=== PATIENT | male | born 1950 | race Caucasian/White ===

== ENCOUNTER 2019-03-26 04:54 | Inpatient (IN) ==
--- NOTE | 2019-02-19 12:12 | PAT Medication Instructions ---
Medication Instructions Date of Service February 19, 2019 Home Medications Areds 2 1 tab PO BID [place] [employer] 4 tab PO DAILY Herbal Diuretic 1 dose PO UD PRN Joint Es 900 With Glucosamine Chondroitin 2 tab PO DAILY Super Srinivas 200 mg PO DAILY ascorbic acid (vitamin C) [Vitamin C] 1,200 mg PO DAILY cyanocobalamin (vitamin B-12) [Vitamin B-12] 1,000 mcg PO DAILY diltiazem HCl 240 mg PO DAILY ginkgo biloba 60 mg PO DAILY losartan 50 mg PO DAILY meclizine 25 mg PO UD PRN montelukast 10 mg PO QPM niacin 400 mg PO DAILY omega 4-kgp-cca-fish oil [[place]-3] 1 cap PO BID omeprazole 20 mg PO QAM ranitidine HCl 150 mg PO HS tamsulosin 0.8 mg PO DAILY STOP taking 2 weeks before surgery (or as soon as possible if surgery is within 2 weeks) Areds 2 1 tab PO BID [place] [employer] 4 tab PO DAILY Herbal Diuretic 1 dose PO UD PRN Joint Es 900 With Glucosamine Chondroitin 2 tab PO DAILY Super Srinivas 200 mg PO DAILY ginkgo biloba 60 mg PO DAILY omega 7-ohv-ctp-fish oil [[place]-3] 1 cap PO BID STOP taking 24 hours before surgery niacin 400 mg PO DAILY DO NOT take the morning of surgery ascorbic acid (vitamin C) [Vitamin C] 1,200 mg PO DAILY cyanocobalamin (vitamin B-12) [Vitamin B-12] 1,000 mcg PO DAILY losartan 50 mg PO DAILY Take morning of surgery With a small sip of water, OTHERWISE NOTHING TO EAT OR DRINK AFTER MIDNIGHT: diltiazem HCl 240 mg PO DAILY meclizine 25 mg PO UD PRN (if needed) omeprazole 20 mg PO QAM Take evening before surgery meclizine 25 mg PO UD PRN (if needed) montelukast 10 mg PO QPM ranitidine HCl 150 mg PO HS Other Notes If you have any questions please call us at [phone] or [phone] or [phone] or [phone]
--- NOTE | 2019-02-22 10:48 | Anesthesiology Consultation ---
Date of Service February 22, 2019 Assessment & Plan (1) Encounter for pre-operative examination: Chart Review Chart Review: Acceptable Risk for Surgery and Patient seen in Pre Admission Testing Teaching & Discussion Pre-Anesthesia Teaching/Discussion Notes: Instructed NPO after midnight before surgery,except medications with 15 cc of water. Medication instructions provided according to the PAT guidelines. History Surgery Operation Date: 03/26/19 11:35 Proposed Procedures p Right Total Knee Arthroplasty - Heraclio Foster, Height/Weight Height: 6 ft 2 in Weight: 134.8 kg Allergies Allergy/AdvReac Type Severity Reaction Status Date / Time Sulfa (Sulfonamide Allergy Unknown UNKNOWN, Verified 02/16/19 10:07 Antibiotics) REACTION WAS WHEN A CHILD levofloxacin [From Levaquin] AdvReac Unknown ACHILLES Verified 02/16/19 10:50 TENDON TORE Medications Home Medications Medication Instructions Recorded Confirmed Last Taken Areds 2 1 tab PO BID 02/16/19 02/16/19 Unknown [place] [employer] 4 tab PO DAILY 02/16/19 02/16/19 Unknown Herbal Diuretic 1 dose PO UD PRN 02/16/19 02/16/19 Unknown Joint Es 900 With Glucosamine 2 tab PO DAILY 02/16/19 02/16/19 Unknown Chondroitin Super Srinivas 200 mg PO DAILY 02/16/19 02/16/19 Unknown ascorbic acid (vitamin C) [Vitamin 1,200 mg PO DAILY 02/16/19 02/16/19 Unknown C] cyanocobalamin (vitamin B-12) 1,000 mcg PO DAILY 02/16/19 02/16/19 Unknown [Vitamin B-12] diltiazem HCl 240 mg PO DAILY 02/16/19 02/16/19 02/15/19 ginkgo biloba 60 mg PO DAILY 02/16/19 02/16/19 Unknown losartan 50 mg PO DAILY 02/16/19 02/16/19 02/15/19 meclizine 25 mg PO UD PRN 02/16/19 02/16/19 Unknown montelukast 10 mg PO QPM 02/16/19 02/16/19 02/15/19 niacin 400 mg PO DAILY 02/16/19 02/16/19 Unknown omega 8-gih-pvi-fish oil [[place]-3] 1 cap PO BID 02/16/19 02/16/19 Unknown omeprazole 20 mg PO QAM 02/16/19 02/16/19 02/16/19 ranitidine HCl 150 mg PO HS 02/16/19 02/16/19 02/15/19 tamsulosin 0.8 mg PO DAILY 02/16/19 02/16/19 Unknown Past Medical History Medical History Acid reflux controlled Claustrophobia History of skin cancer History of sleep apnea no device (per patient, never prescribed device); patient now s/p partial uvulectomy History of staph infection 2014 s/p left GIA (at [facility]- treated with levaquin and rifampin) Hypertension Neck problem C2-C7 compression- manages with chiropractor; Left shoulder corticosteroid injection 02/22/19 for radiculopathy. Obesity Osteoarthritis Vertigo Episodes a few times a year Exercise / Class Metabolic Activity III < 4 Walking/Shop/Light housework Past Surgical History Surgical History History of cholecystectomy History of colonoscopy History of ear, nose, and throat (ENT) surgery REMOVED SUBLINGUAL GLAND AND RE-CONSTRUCTED SALIVARY GLAND TUBES History of endoscopy History of evacuation of hematoma S/P L GIA History of lung surgery 8 TUMORS TOTAL (B/L LUNGS), REMOVED 1 (BENIGN) History of oral surgery TOOTH EXTRACTION History of removal of skin mole MULTIPLE History of right knee surgery History of total left hip arthroplasty History of uvulectomy Past Anesthesia History No Family Hx of Anesthesia Complications and Other Patient states "too much gas" used with cholecystectomy and patient was told this was why he had shoulder pain post-op. History of PONV No Hx of Motion Sickness and History of PONV Social History Smoking Status: Former smoker tobacco type: cigarettes Do You Dip or Chew Tobacco: No Smoking End Date: QUIT IN EARLY - SMOKED FOR 6 YRS Hx Alcohol Use: Yes Alcohol type: beer alcohol intake frequency: a few times a week Hx Substance Use: No substance use type: does not use Review of Systems Occasional hay fever symptoms. Reflux controlled. Patient denies chest pain, shortness of breath, joint pain, palpitations. Physical Exam Vital Signs VITALS BP 130/81 P 60 TEMP 98.2 SP02 95%RA RESP 18 PHYSICAL Full neck and c-spine range of motion. Full TMJ range of motion. TMD 3 finger breaths Mallampati Score 1 Dentition: several missing molars, left lower side cap Lungs: clear throughout to auscultation Cardiac: regular rate and rhythm, no murmurs noted Spine: normal Carotid arteries: negative bruit Extremities: no edema Testing Laboratory Results 02/22/19 10:09 02/22/19 10:09 PT 10.6 Seconds (9.0-12.0) 02/22/19 10:09 INR 1.0 (0.9-1.1) 02/22/19 10:09 APTT 28.0 Seconds (21.0-31.0) 02/22/19 10:09 Urine Color Yellow 02/22/19 10:09 Urine Appearance Clear (Clear) 02/22/19 10:09 Urine pH 5.0 (4.5-7.5) 02/22/19 10:09 Ur Specific [place] 1.020 (1.000-1.030) 02/22/19 10:09 Urine Protein Negative (Negative) 02/22/19 10:09 Urine Glucose (UA) Negative (Negative) 02/22/19 10:09 Urine Ketones Negative (Negative) 02/22/19 10:09 Urine Nitrite Negative (Negative) 02/22/19 10:09 Ur Leukocyte Esterase Negative (Negative) 02/22/19 10:09 Blood Type O Positive 02/22/19 10:09 Antibody Screen NEGATIVE 02/22/19 10:09 Electrocardiogram Date: 02/22/19 Findings: + SB @ (55) Chest X-Ray Date: 02/22/19 Findings: + NAD
--- NOTE | 2019-02-22 11:43 | XRay Report ---
XR chest Pre-admission PA/Lat CLINICAL HISTORY: Preoperative chest COMPARISON STUDY: No previous studies for comparison. FINDINGS: The cardiac and mediastinal contours are normal. There is no evidence of focal pulmonary co nsolidation. There is no evidence of failure. No pleural effusions are visualized.[ IMPRESSION: No active disease in the chest. Electronically signed by: Yosef Blandon M.D. 02/22/2019 11:42 AM
[2019-02-22 12:03] LABS: Basophils # (auto) 0.04 K/uL (0-0.2); Basophils % (auto) 0.7 %; Eosinophils # (auto) 0.13 K/uL (0-0.5); Eosinophils % (auto) 2.2 %; Hemoglobin 15.3 g/dL (14.0-18.0); Immature Granulocytes # (auto) 0.01 K/uL (0.00-0.02); Immature Granulocytes % (auto) 0.2 %; Lymphocytes # (auto) 1.31 K/uL (1.2-3.4); Lymphocytes % (auto) 22.7 %; Mean Corpuscular Hgb Conc 34.8 g/dL (32-36); Mean Corpuscular Volume 90.5 fL (80-100); Mean Platelet Volume 10.3 fL (7.4-10.4); Monocytes # (auto) 0.76 K/uL (0.11-0.59); Monocytes % (auto) 13.1 %; Neutrophils # (auto) 3.53 K/uL (1.4-6.5); Neutrophils % (auto) 61.1 %; Platelet Count 219 K/uL (130-400); RDW Coefficient of Variation 13.5 % (11.5-14.5); RDW Standard Deviation 44.8 fL (36.4-46.3); Red Blood Count 4.86 M/uL (4.7-6.1); White Blood Count 5.78 K/uL (4.8-10.8)
[2019-02-22 12:08] LABS: Calcium 9.3 mg/dl (8.5-10.1); Creatinine Clr Calc Pharmacy 76.6 ml/min; Est GFR (African American) 62.1; Est GFR (Non-African American) 53.6
[2019-02-22 12:09] LABS: Appearance Urine Clear (Clear); Bilirubin Urine Negative (Negative); Blood Urine Negative (Negative); Color Urine Yellow; Glucose Urine UA Negative (Negative); Ketones Urine Negative (Negative); Leukocyte Esterase Urine Negative (Negative); Nitrite Urine Negative (Negative); Protein Urine Negative (Negative); Urobilinogen Urine Negative (Negative)
[2019-02-22 12:13] LABS: Prothrombin Time 10.6 Seconds (9.0-12.0)
--- NOTE | 2019-03-25 14:17 | History & Physical Report ---
Date of Service March 25, 2019 Assessment & Plan (1) Osteoarthritis of right knee: We will proceed with a right total knee arthroplasty. Postoperatively he will be started on aspirin for DVT prophylaxis and kept overnight for postop medical management. He plans to use home nursing agency upon discharge. Present on Admission?: Yes History of Present Illness Chief Complaint: Primary osteoarthritis of the right knee Primary Care Provider: NO PCP Jorge is a pleasant 68-year-old male who is been doing with chronic increasing right knee pain. X-rays and clinical examination have been diagnostic for primary osteoarthritis of the right knee. After failing conservative treatment, he has elected proceed with a right total knee arthroplasty. He does have a history of an infected left total hip arthroplasty done in outside institution about 4 years ago. He had an infected hematoma and underwent a washout. It was a staph infection and not MRSA. He was on antibiotics for 3 months and it cleared. Allergies Allergy/AdvReac Type Severity Reaction Status Date / Time Sulfa (Sulfonamide Allergy Unknown UNKNOWN, Verified 02/16/19 10:07 Antibiotics) REACTION WAS WHEN A CHILD levofloxacin [From Levaquin] AdvReac Unknown ACHILLES Verified 02/16/19 10:50 TENDON TORE Home Medications Home Medications Medication Instructions Recorded Confirmed Type Areds 2 1 tab PO BID 02/16/19 02/16/19 History [place] [employer] 4 tab PO DAILY 02/16/19 02/16/19 History Herbal Diuretic 1 dose PO UD PRN 02/16/19 02/16/19 History Joint Es 900 With Glucosamine 2 tab PO DAILY 02/16/19 02/16/19 History Chondroitin Super Srinivas 200 mg PO DAILY 02/16/19 02/16/19 History ascorbic acid (vitamin C) [Vitamin 1,200 mg PO DAILY 02/16/19 02/16/19 History C] cyanocobalamin (vitamin B-12) 1,000 mcg PO DAILY 02/16/19 02/16/19 History [Vitamin B-12] diltiazem HCl 240 mg PO DAILY 02/16/19 02/16/19 History ginkgo biloba 60 mg PO DAILY 02/16/19 02/16/19 History losartan 50 mg PO DAILY 02/16/19 02/16/19 History meclizine 25 mg PO UD PRN 02/16/19 02/16/19 History montelukast 10 mg PO QPM 02/16/19 02/16/19 History niacin 400 mg PO DAILY 02/16/19 02/16/19 History omega 5-sxb-fyn-fish oil [[place]-3] 1 cap PO BID 02/16/19 02/16/19 History omeprazole 20 mg PO QAM 02/16/19 02/16/19 History ranitidine HCl 150 mg PO HS 02/16/19 02/16/19 History tamsulosin 0.8 mg PO DAILY 02/16/19 02/16/19 History Past Med/Surg History Medical History Acid reflux controlled Claustrophobia History of skin cancer History of sleep apnea no device (per patient, never prescribed device); patient now s/p partial uvulectomy History of staph infection 2014 s/p left GIA (at [facility]- treated with levaquin and rifampin) Hypertension Neck problem C2-C7 compression- manages with chiropractor; Left shoulder corticosteroid injection 02/22/19 for radiculopathy. Obesity Osteoarthritis Vertigo Episodes a few times a year Surgical History History of cholecystectomy History of colonoscopy History of ear, nose, and throat (ENT) surgery REMOVED SUBLINGUAL GLAND AND RE-CONSTRUCTED SALIVARY GLAND TUBES History of endoscopy History of evacuation of hematoma S/P L GIA History of lung surgery 8 TUMORS TOTAL (B/L LUNGS), REMOVED 1 (BENIGN) History of oral surgery TOOTH EXTRACTION History of removal of skin mole MULTIPLE History of right knee surgery History of total left hip arthroplasty History of uvulectomy Social History Preferred Language: Yemeni Communication Ability: Effective Continuing Education Dean Required: No Beliefs That Will Affect Care: None Current Living Situation: Spouse Other Information That Helps Us Care for You: No Feels Safe at Home: Yes Smoking Status: Former smoker Tobacco Type: cigarettes ; Do You Dip or Chew Tobacco: No ; Smoking End Date: QUIT IN EARLY S- SMOKED FOR 6 YRS ; Hx Alcohol Use: Yes Alcohol type: beer Hx Substance Use: No Review of Systems All systems reviewed & are unremarkable except as noted in HPI & below Physical Exam Constitutional: WD/WN, vitals as above Eyes: PERRL, conjunctivae normal, anicteric sclerae ENMT: external ear and nose normal, oropharynx normal Neck: trachea midline, no thyromegaly Respiratory: normal respiratory effort Cardiovascular: RRR, no murmur, no edema Gastrointestinal (Abdomen): normal bowel sounds, soft, nontender, no hepatosplenomegaly Musculoskeletal: On physical examination of the right knee there is a trace effusion. There is near full range of motion and no evidence of instability. There is significant tenderness palpation along the medial and lateral joint lines and over the distal femoral condyles. Psychiatric: A+Ox3, euthymic affect Results & Data Diagnostic Findings Radiographs of the right knee demonstrate advanced osteoarthritis with joint space narrowing osteophyte formation and [id number] articulation.
[2019-03-26] MEDS ORDERED: LR 15ML/HR IV SCH (06:00)
[2019-03-26] MEDS ORDERED: GABAPENTIN 900 MG DOSE PO SCH (06:00)
[2019-03-26] MEDS ORDERED: ACETAMINOPHEN 500 MG TAB PO SCH (06:00)
[2019-03-26] MEDS ORDERED: FAMOTIDINE 20 MG TAB PO SCH (06:00)
[2019-03-26] MEDS ORDERED: TRANEXAMIC ACID 1,000 MG **IV Pre-op IV SCH (06:00)
[2019-03-26] MEDS ORDERED: ROPIVACAINE 0.5% HCL/PF 150 MG, BUPIVACAINE 0.5% MPF 30 ML, EPINEPHrine 30MG/30ML (OR U... INSTIL SCH (06:00)
[2019-03-26] MEDS ORDERED: LR 500ML BOLUS, THEN 15ML/HR IV SCH (06:00)
[2019-03-26] MEDS ORDERED: TRANEXAMIC ACID 1,000 MG **IV Intra-op IV SCH (06:30)
[2019-03-26] MEDS ORDERED: BUPIVACAINE 0.5 % 5 MG/1 ML PF 10ML VIAL ONE (06:34)
[2019-03-26] MEDS ORDERED: ROPIVACAINE 0.5% 5 MG/ML 30 ML VIAL ONE (06:35)
[2019-03-26] MEDS ORDERED: ORTHO JOINT ANESTHETIC ONE (06:36)
[2019-03-26] MEDS ORDERED: MIDAZOLAM HCL 1 MG/ML 2ML VIAL ONE ×2 (06:39→07:10)
[2019-03-26] MEDS ORDERED: PROPOFOL IV EMULSION 10 MG/ML 20 ML VIAL IV ONE ×3 (06:39→08:00)
[2019-03-26] MEDS ORDERED: LIDOCAINE HCL 2% 2 ML VIAL/AMP(20MG/ML) INFIL ONE (06:39)
[2019-03-26] MEDS ORDERED: fentaNYL citrate 100 MCG/2 ML VIAL ONE (06:39)
--- NOTE | 2019-03-26 06:56 | History & Physical Bridge Note ---
Date of Service March 26, 2019 History & Physical Bridge Note I have examined the patient, reviewed the History & Physical and in the interval since the performance of the History & Physical I have noted the following changes of clinical significance: no changes noted
[2019-03-26] MEDS ORDERED: ATROPINE SULFATE 0.1 MG/ML 10ML SYR IV PRN (07:01)
[2019-03-26] MEDS ORDERED: ONDANSETRON INJ 2 MG/ML 2 ML VIAL IV PRN ×2 (07:01→10:26)
[2019-03-26] MEDS ORDERED: ePHEDrine sulfate 50 MG/ML AMP IV PRN (07:01)
[2019-03-26] MEDS: CEFAZOLIN 3000MG 72.5 ML IV SCH ×2 (07:05→07:15)
--- NOTE | 2019-03-26 08:39 | Operative Report ---
Post Operative Report Pre & Post Diagnosis Operation Date: 03/26/19 07:00 Pre-Op Diagnosis: Right Knee Advanced Primary Osteoarthritis Post-Op Diagnosis: Right Knee Advanced Primary Osteoarthritis Procedure Operation Date: 03/26/19 07:00 Actual Procedures p Right Total Knee Arthroplasty(Right) - Heraclio Foster DO Surgeon Heraclio Foster DO Supervisor Remelt Heraclio Wong PAC Estimated Blood Loss 20 Findings Consistent with Post-Op Diagnosis Specimens Right femoral and tibial bone Complications none Disposition Disposition: Recovery Room Indications Jorge is a pleasant 68-year-old male who presented my office with chronic increasing right knee pain. X-rays and clinical examination were diagnostic for primary osteoarthritis of the right knee. After failing conservative treatment, he elected to proceed with a right total knee arthroplasty. Description of Procedure Implants used: I used a Biomet Vanguard total knee arthroplasty system with a size 70 femur, 79 tibia, 34 patella, and a size 12 PS polyethylene bearing. All components were cemented in place with Palacos G cement. The patient arrived [facility] for the above procedure. There were seen in the preoperative holding area and the operative extremity was identified and signed. There were given a preoperative antibiotic, a spinal anesthetic and an adductor nerve block. There were taken back to the operating room and laid on the table in supine position. There were given basic sedation. The operative knee was then prepped and draped in sterile fashion. A timeout was done, and the patient and the operative extremity was properly identified. A midline incision was made directly over the patella. Dissection was taken down to the extensor mechanism. A subvastus arthrotomy was used. The medial retinaculum was released and the fat pad was mostly left intact. The knee was flexed and the ACL, PCL, and meniscus were removed. A drill was sent down the center of the femoral canal followed by an intramedullary olivia. Off that olivia a distal femoral cutting block was placed. 9 mm was resected off the distal femur at 5 of valgus. A posterior referencing AP sizing guide was then placed on the distal femur. The femur measured to be a size 70. 2 drill holes were placed in 3 of external rotation. A 4-in-1 cutting block was then impacted into place. Anterior posterior and chamfer cuts were then made. The posterior stabilizing box guide was then impacted into place and the box was resected for the posterior stabilizing component. The proximal tibia was then exposed. A drill was sent down the center of the tibial canal followed by an intramedullary olivia. Off that olivia a proximal tibial resection guide was placed. The proximal tibia was then resected. The tibia measured to be a size 79. The tibial plate was then placed in the appropriate rotation and the tibia was punched. The posterior aspect of the knee was then opened up and any additional meniscus fragments and osteophytes were removed. Trial components were then placed. I used a size 12 PS polyethylene insert. The knee was brought through a full range of motion and felt to be stable. The patella was then everted and 8 mm was resected off the posterior aspect of the patella. The patella measured to be a size 34. 3 peg holes were then drilled. A trial patella was placed. The knee was once again brought through a full range of motion and felt to be stable. Trial components were then removed. The surrounding soft tissues were injected with 100 cc of an orthopedic pain control cocktail. All components were then cemented into place with Palacos G cement. The final polyethylene insert was then snapped into place and the anterior bar was locked. Once cement was dry the tourniquet was deflated. Hemostasis was obtained. A dilute betadyne lavage was then done for 3 minutes. The joint was then irrigated with normal saline solution. The subvastus arthrotomy was then closed with #1 Vicryl suture. The skin was closed with 2-0 Vicryl, 3-0V lock suture, and omer. A soft compressive dressing was placed. The patient was then transferred to a hospital bed and taken to the postanesthesia care unit in stable condition. They tolerated the procedure well. I attest to the content of the Intraoperative Record and any orders documented therein. Any exceptions are noted below.
--- NOTE | 2019-03-26 09:35 | XRay Report ---
XR knee RT 2V routine CLINICAL HISTORY: Surgical Post Op COMPARISON: None. DISCUSSION: Anatomic alignment posttotal right knee arthroplasty. Could contact between prosthetic an d underlying bone. Expected soft tissue postoperative change. IMPRESSION: Anatomic alignment posttotal right knee arthroplasty. The above report was generated using voice recognition software. It may contain grammatical, syntax or spelling errors. Electronically signed by: Noel Cortez M.D. 03/26/2019 9:34 AM
[2019-03-26] MEDS ORDERED: BISACODYL 10 MG SUPP PR PRN (10:26)
[2019-03-26] MEDS ORDERED: NALOXONE HCL 0.4 MG/1 ML VIAL/CARP IV PRN (10:26)
[2019-03-26] MEDS ORDERED: AREDS PO SCH (10:26)
[2019-03-26] MEDS ORDERED: NIACIN PO SCH (10:26)
[2019-03-26] MEDS ORDERED: MAGNESIUM HYDROXIDE SUSP 30 ML UDC PO PRN (10:26)
[2019-03-26] MEDS ORDERED: HYDROmorphone INJ 0.5 MG/0.5 ML SYR IV PRN (10:26)
[2019-03-26] MEDS ORDERED: MECLIZINE HCL 25 MG TAB PO PRN (10:26)
[2019-03-26] MEDS ORDERED: METOCLOPRAMIDE HCL INJ 5 MG/ML 2 ML VIAL IV PRN (10:26)
[2019-03-26] MEDS: PANTOprazole 40 MG TAB PO SCH (11:42)
[2019-03-26] MEDS: ASPIRIN 81 MG ECTAB PO SCH ×2 (11:42→22:10)
[2019-03-26] MEDS: DOCUSATE SODIUM 100 MG CAP PO SCH ×2 (11:44→22:10)
[2019-03-26] MEDS: OMEGA-3 (PURIFIED FISH OIL) 1 GM CAP PO SCH ×2 (11:44→22:10)
[2019-03-26] MEDS: dilTIAZem HCL 240 MG CAPCR PO SCH (11:44)
[2019-03-26] MEDS: MULTIVITAMIN TAB PO SCH (11:45)
[2019-03-26] MEDS: LOSARTAN POTASSIUM 50 MG TAB PO SCH (11:45)
[2019-03-26] MEDS: TAMSULOSIN HCL 0.4 MG CAP PO SCH (11:47)
[2019-03-26] MEDS: SODIUM CHLORIDE 0.9% 1000ML 1,000 ML IV SCH ×2 (11:49→21:55)
[2019-03-26] MEDS: KETOROLAC TROMETHAMINE 15 MG/ML VIAL IV SCH ×2 (11:50→18:58)
[2019-03-26] MEDS: ACETAMINOPHEN 500 MG TAB PO SCH ×2 (12:59→22:10)
[2019-03-26] MEDS: OXYCODONE HCL IR 5 MG TAB (IMMEDIATE RELEASE) PO PRN (13:00)
[2019-03-26] MEDS: CEFAZOLIN 2000MG 2,000 MG/15 ML SYR IV SCH ×2 (13:01→22:16)
--- NOTE | 2019-03-26 14:18 | Anesthesiology Progress Note ---
Date of Service March 26, 2019 Anesthesia Post Procedure Vital Signs Vital Signs: Temp Pulse Pulse Resp BP BP Pulse Ox 03/26/19 13:10 62 17 122/74 100 03/26/19 12:10 65 16 123/71 93 03/26/19 11:10 56 L 16 107/68 99 03/26/19 10:26 60 16 110/65 95 03/26/19 10:10 36.6 C 61 16 111/67 99 03/26/19 09:55 37.2 C 56 L 14 104/57 L 99 03/26/19 09:50 54 L 14 100/62 99 03/26/19 09:40 54 L 12 101/59 L 99 03/26/19 09:30 64 17 97/66 L 98 03/26/19 09:20 59 L 18 105/60 98 03/26/19 09:10 60 18 100/58 L 100 03/26/19 09:01 37.5 C 73 18 94/61 L 100 03/26/19 05:53 36.9 C 72 18 148/71 H 99 Transfer of Care Handoff Completed per policy Notes Mental Status: alert / awake / arousable and participated in evaluation Patient Amnestic to Procedure: Yes Nausea / Vomiting: adequately controlled Pain: adequately controlled Airway Patency, RR, SpO2: stable & adequate BP & HR: stable & adequate Hydration State: stable & adequate Neuraxial Anesthesia: was administered and sensory block is resolving Anesthetic Complications: no major complications apparent and Pt Satisfied with anesthetic care
[2019-03-26] MEDS ORDERED: MONTELUKAST SODIUM 10 MG TABLET PO SCH (21:00)
[2019-03-26] MEDS ORDERED: SENNA 8.6 MG TAB PO SCH (21:00)
[2019-03-27] MEDS: KETOROLAC TROMETHAMINE 15 MG/ML VIAL IV SCH ×3 (05:24→12:48)
[2019-03-27] MEDS: ACETAMINOPHEN 500 MG TAB PO SCH ×2 (05:24→14:16)
[2019-03-27 06:33] LABS: Hematocrit (blood only) 36.2 % (42-52); Hemoglobin 12.5 g/dL (14.0-18.0); Mean Corpuscular Hgb Conc 34.5 g/dL (32-36); Mean Corpuscular Volume 91.2 fL (80-100); Mean Platelet Volume 9.7 fL (7.4-10.4); Platelet Count 156 K/uL (130-400); RDW Coefficient of Variation 13.9 % (11.5-14.5); RDW Standard Deviation 46.5 fL (36.4-46.3); Red Blood Count 3.97 M/uL (4.7-6.1); White Blood Count 8.06 K/uL (4.8-10.8)
[2019-03-27] MEDS: OXYCODONE HCL IR 5 MG TAB (IMMEDIATE RELEASE) PO PRN (06:46)
[2019-03-27 07:03] LABS: BUN Creatinine Ratio 14.5 (10-20); Calcium 8.2 mg/dl (8.5-10.1); Creatinine Clr Calc Pharmacy 89.5 ml/min; Est GFR (African American) 75.4; Potassium 4.1 mmol/L (3.5-5.1)
[2019-03-27] MEDS: DOCUSATE SODIUM 100 MG CAP PO SCH (08:56)
[2019-03-27] MEDS: OMEGA-3 (PURIFIED FISH OIL) 1 GM CAP PO SCH (08:56)
[2019-03-27] MEDS: MULTIVITAMIN TAB PO SCH (08:56)
[2019-03-27] MEDS: LOSARTAN POTASSIUM 50 MG TAB PO SCH (08:56)
[2019-03-27] MEDS: ASPIRIN 81 MG ECTAB PO SCH (08:56)
[2019-03-27] MEDS: dilTIAZem HCL 240 MG CAPCR PO SCH (08:57)
[2019-03-27] MEDS: PANTOprazole 40 MG TAB PO SCH (08:57)
[2019-03-27] MEDS: TAMSULOSIN HCL 0.4 MG CAP PO SCH (08:57)
--- NOTE | 2019-03-27 09:01 | Orthopedic Progress Note ---
Date of Service March 27, 2019 Assessment & Plan (1) Osteoarthritis of right knee: Overall is doing very well. Is not having much pain in the right knee. He will be seen by physical therapy again today for ambulation and range of motion exercises. He is on aspirin for DVT prophylaxis. He can be discharged home later today. He plans to use a home nursing agency. He will follow-up with orthopedics in 2 weeks. Present on Admission?: Yes Subjective Jorge was seen and examined at bedside this morning. Overall is doing very well. Is not having too much pain in his right knee. He is Toy been up and am bulating around the nurses station with physical therapy. He has no complaints. Physical Exam Musculoskeletal: On physical examination of the right knee, the dressing is clean and dry. He has active dorsiflexion and plantarflexion of his right ankle. Sensations intact throughout. Results & Data Vital Signs (Past 12 Hours) Vital Signs Temp Pulse Resp BP Pulse Ox 03/27/19 07:02 36.7 C 57 L 16 115/68 97 03/27/19 04:07 36.7 C 58 L 16 122/65 99 03/26/19 23:00 36.6 C 54 L 16 111/65 90 Laboratory Results H & H 02/22/19 03/27/19 Range/Units 10:09 06:12 Hgb 15.3 12.5 L (14.0-18.0) g/dL Hct 44.0 36.2 L (42-52) % Coagulation 02/22/19 Range/Units 10:09 INR 1.0 (0.9-1.1) Diagnostic Findings Postoperative x-rays of the right knee show the prosthesis to be in anatomic alignment without any evidence of fracture, dislocation, or loosening. PG Care Time/CCT Total # of Minutes Spent Total Time Spent with Patient: Total time spent is greater than 50% in coordination of care (as documented) at patient's floor/unit and/or counseling patient:
--- NOTE | 2019-03-27 09:05 | Discharge Summary ---
Date of Service March 27, 2019 Admission HPI Per Admitting Provider Jorge is a pleasant 68-year-old male who is been doing with chronic increasing right knee pain. X-rays and clinical examination have been diagnostic for primary osteoarthritis of the right knee. After failing conservative treatment, he has elected proceed with a right total knee arthroplasty. He does have a history of an infected left total hip arthroplasty done in outside institution about 4 years ago. He had an infected hematoma and underwent a washout. It was a staph infection and not MRSA. He was on antibiotics for 3 months and it cleared. Principal Diagnosis Right total knee arthroplasty Discharge Data Allergies Allergy/AdvReac Type Severity Reaction Status Date / Time Sulfa (Sulfonamide Allergy Unknown UNKNOWN, Verified 02/16/19 10:07 Antibiotics) REACTION WAS WHEN A CHILD levofloxacin [From Levaquin] AdvReac Unknown ACHILLES Verified 02/16/19 10:50 TENDON TORE Consultations 03/26/19 10:26 Consult Case Management - Discharge Planning Routine Procedures Performed Operation Date: 03/26/19 07:00 Actual Procedures p Right Total Knee Arthroplasty(Right) - Heraclio Foster DO Ordered Studies 03/26/19 05:00 US - OR guided needle placemen Routine Hospital Course (1) Osteoarthritis of right knee: On March 26, 2019 Jorge arrived at [facility] and underwent a right total knee arthroplasty without complication. He had a spinal anesthetic and a right adductor nerve block. Postoperatively he was started on aspirin for DVT prophylaxis and discharged to general orthopedic floors. His hospital course is uneventful. On postop day #1 his H&H was stable and his pain was well controlled. He was able to participate well with physical therapy. He was then discharged home with tramadol for pain control. He will get a home nursing agency at home. He will follow-up with orthopedics in 2 weeks. Total Time Total Time Spent Total Time Spent (In Minutes): 20 Discharge Plan Discharge Items Patient Disposition: Home - Home Health Services Reason For Visit: Degenerative Joint Disease Right Knee Discharge Diagnosis: Right total knee arthroplasty Discharge Goals: Decrease discomfort and Improve function Activity: Per 'Additional Instructions' section Non-emergency contact: Surgeon Call non-emergency contact if: your wound has increased redness and your wound has increased drainage Follow-up/Referrals: PCP,NO [Primary Care Provider] - Diet: Regular Addtl Provider Instructions: Activity and Therapy Recommendations: * If you are using [facility] then therapy will be provided at your home until they feel you have accomplished all of your goals. * If you are using [facility] then Physical Therapy will be provided until they feel you are ready to start Outpatient Physical Therapy. * If you are not using home therapy then Outpatient Physical Therapy should start about 3-5 days from your day of surgery. Therapy will last about 6-10 weeks * It is important not to put a pillow under your knee when you are relaxing or sleeping. It is just as important to make sure you are getting your knee perfectly straight as it is to regain your knee bend. * You were shown a series of exercises in the hospital. Do these exercises three times each day including the exercises you were shown in physical therapy. * Get up and walk several times each day. For the first four weeks, try not to stand or walk for more than one hour at a time. If you do stand or walk for more than one hour, you will not hurt anything, but your leg will likely swell. * As you feel comfortable, you may change from the walker or crutches to a cane and then to independent walking. Medications: * Narcotic You will likely be sent home from the hospital with a prescription for the narcotic pain medication that worked best throughout your stay. * Aspirin Most patients will be required to take Aspirin 81mg twice a day for 6 weeks after surgery. This is obtained [id number] and a prescription is not necessary. * Other medications may be prescribed for specific circumstances. If you have any questions, please call the office at . * Resume previous home medications unless otherwise instructed TEDs/Elastic Stockings: The white elastic stockings help limit swelling and prevent blood clots from forming in your legs.~ The more you wear them, the more they work. Wear them for six weeks. Dressing Care: If the incision is not draining then you may leave the omer open to air. If there is a little bit of drainage or if the omer are getting stuck on your clothing then cover the incision with a dry dressing. The omer will be removed at your 2 week follow-up appointment. Showering: You may shower 5 days from the day of surgery. Let the soapy shower water run over the omer and pat them dry. Do not scrub or soak the incision. Things To Watch For: * Drainage from the incision site that occurs more than one week after your surgery. * Increased redness at the incision site. * Fever above 102 degrees Fahrenheit. * Unusual chest pain or shortness of breath. * Call [facility] at with any of the above problems Follow-Up Visit: Follow-up with Dr. Foster 2-3 weeks after your day of surgery. An appointment was probably scheduled when you signed-up for surgery in the office. If you have any questions call Office Instructions: More detailed instructions as well as Frequently Asked Questions were provided in a folder by our office when you signed-up for surgery. Please review these instructions when you get home. If you have any further questions or concerns, please feel free to call the office at [phone] Prescriptions: New aspirin [Ecotrin Low Strength] 81 mg Tablet,Delayed Release (Dr/Ec) 81 mg PO BID Qty: 84 RF: 0 tramadol 50 mg tablet 50 mg PO Q6H PRN (Reason: pain) Qty: 30 RF: 0 Continued losartan 50 mg Tablet 50 mg PO DAILY RF: 0 diltiazem HCl 240 mg Capsule,Extended Release 24 Hr 240 mg PO DAILY RF: 0 tamsulosin 0.4 mg Capsule 0.8 mg PO DAILY RF: 0 ranitidine HCl 150 mg Tablet 150 mg PO HS RF: 0 omeprazole 20 mg Capsule,Delayed Release(Dr/Ec) 20 mg PO QAM RF: 0 montelukast 10 mg Tablet 10 mg PO QPM RF: 0 ascorbic acid (vitamin C) [Vitamin C] 1,000 mg Tablet 1,200 mg PO DAILY RF: 0 cyanocobalamin (vitamin B-12) [Vitamin B-12] 1,000 mcg Tablet 1,000 mcg PO DAILY RF: 0 meclizine 25 mg Tablet 25 mg PO UD PRN (Reason: Dizziness) RF: 0 niacin 100 mg Tablet 400 mg PO DAILY RF: 0 ginkgo biloba 60 mg Capsule 60 mg PO DAILY RF: 0 Caspar-3 350 mg-235 mg- 90 mg-597 mg Capsule,Delayed Release(Dr/Ec) 1 cap PO BID RF: 0 Areds 2 1 tab PO BID RF: 0 [place] [employer] 4 tab PO DAILY RF: 0 Herbal Diuretic 1 dose PO UD PRN (Reason: LEG SWELLING) RF: 0 Joint Es 900 With Glucosamine Chondroitin 2 tab PO DAILY RF: 0 Super Srinivas 200 mg PO DAILY RF: 0 Stand-Alone Forms: [facility] Discharge Orders: Discharge Order (Routine); Ordered 03/27/19 Ordered By: Heraclio Foster Admission Data Admit Date/Time: 03/26/19 09:03 Attending Provider: Heraclio Foster Admit Provider: Heraclio Foster Primary Care Provider: PCP,NO Service: Surgical Services
== END 2019-03-27 15:10 | disposition home health service (06) | DRG 470 ==
LOC: ASU 04:54 → 3E 09:03
DX: Z98.890 Other specified postprocedural states; Z88.2 Allergy status to sulfonamides; Z79.899 Other long term (current) drug therapy; Z88.1 Allergy status to other antibiotic agents; K21.9 Gastro-esophageal reflux disease without esophagitis; Z86.19 Personal history of other infectious and parasitic diseases; M17.11 Unilateral primary osteoarthritis, right knee; E66.9 Obesity, unspecified; Z68.37 Body mass index [BMI] 37.0-37.9, adult; I10 Essential (primary) hypertension; Z87.891 Personal history of nicotine dependence; Z96.642 Presence of left artificial hip joint

== ENCOUNTER 2022-11-25 09:23 | Observation (INO) ==
--- NOTE | 2022-10-30 09:49 | PAT Medication Instructions ---
Medication Instructions Date of Service October 30, 2022 Home Medications Areds 2 1 tab PO BID [place] [employer] 4 tab PO QAM Joint Es 900 With Glucosamine Chondroitin 1 tab PO BID Super Srinivas 200 mg PO QDL ascorbic acid (vitamin C) 1,000 mg tablet (Vitamin C) 1,200 mg PO QAM cyanocobalamin (vitamin B-12) 1,000 mcg tablet (Vitamin B-12) 1,000 mcg PO QAM ginkgo biloba 60 mg capsule 60 mg PO BID losartan 50 mg tablet 100 mg PO QAM meclizine 25 mg tablet 25 mg PO UD PRN montelukast 10 mg tablet 10 mg PO 1200 niacin 100 mg tablet 100 mg PO BID omega 3 350 mg-dha 235 mg-epa 90 mg-fish oil 597 mg capsule,delay rel ([place]-3) 1 cap PO BID omeprazole 20 mg capsule,delayed release 40 mg PO QAM Allergy Injection 1 dose IM MO bilberry fruit extract 160 mg capsule 160 mg PO QAM cholecalciferol (vitamin D3) 50 mcg (2,000 unit) capsule (Vitamin D3) 50 mcg PO QPM diltiazem HCl 180 mg capsule,24 hr,extended release 180 mg PO QAM fluticasone propionate 50 mcg/actuation nasal spray,suspension 1 spray intranasal QPM Continue as directed montelukast 10 mg tablet 10 mg PO 1200 meclizine 25 mg tablet 25 mg PO UD PRN(if needed) ASK your prescriber and surgeon Allergy Injection 1 dose IM MO STOP taking 2 weeks before surgery (or as soon as possible if surgery is within 2 weeks) Areds 2 1 tab PO BID [employer] 4 tab PO QAM Joint Es 900 With Glucosamine Chondroitin 1 tab PO BID Super Srinivas 200 mg PO QDL ginkgo biloba 60 mg capsule 60 mg PO BID omega 3 350 mg-dha 235 mg-epa 90 mg-fish oil 597 mg capsule,delay rel ([place]-3) 1 cap PO BID bilberry fruit extract 160 mg capsule 160 mg PO QAM STOP taking 48 hours before surgery niacin 100 mg tablet 100 mg PO BID DO NOT take the morning of surgery ascorbic acid (vitamin C) 1,000 mg tablet (Vitamin C) 1,200 mg PO QAM cyanocobalamin (vitamin B-12) 1,000 mcg tablet (Vitamin B-12) 1,000 mcg PO QAM losartan 50 mg tablet 100 mg PO QAM Take morning of surgery With a small sip of water, OTHERWISE NOTHING TO EAT OR DRINK AFTER MIDNIGHT: diltiazem HCl 180 mg capsule,24 hr,extended release 180 mg PO QAM omeprazole 20 mg capsule,delayed release 40 mg PO QAM Take evening before surgery fluticasone propionate 50 mcg/actuation nasal spray,suspension 1 spray intranasal QPM cholecalciferol (vitamin D3) 50 mcg (2,000 unit) capsule (Vitamin D3) 50 mcg PO QPM Other Notes If you have any questions please call us at [phone] or [phone] or [phone] or [phone]
--- NOTE | 2022-11-04 11:33 | Anesthesiology Consultation ---
Date of Service November 04, 2022 Assessment & Plan (1) Encounter for pre-operative examination: - pt reports oxygen desaturations when laying flat, pre-op creatinine 1.5 and abnormal UA. Surgeon's office made aware. - Pt reports upcoming routine PCP appointment, I will complete optimization form to be faxed to PCP for pre-operative notation given upcoming appointment. - cardiology 06/24/22: "...nonprogressive functional class II shortness of breath and fatigue...echo..." - Outpatient joint assessment: Patient is currently scheduled for inpatient pathway. If re-evaluated pending system levels during current pandemic/surgeon requests outpatient pathway, patient is not recommended candidate for outpatient joint program from anesthesia standpoint. Chart Review Chart Review: Pending: Refer to Additional Notes / Consult section and Patient seen in Pre Admission Testing Teaching & Discussion Pre-Anesthesia Teaching/Discussion Notes: Instructed NPO after midnight before surgery, except medications with 15 cc of water. Medication instructions provided according to the PAT guidelines. History Surgery Operation Date: 11/25/22 13:00 Proposed Procedures p Left Total Knee Arthroplasty - Heraclio Foster, Height/Weight Height: 6 ft 2 in Weight: 135.9 kg Allergies Allergy/AdvReac Type Severity Reaction Status Date / Time Sulfa (Sulfonamide Allergy Unknown UNKNOWN, Verified 10/29/22 09:13 Antibiotics) REACTION WAS WHEN A CHILD cephalexin [From Keflex] Allergy "burning" Verified 10/29/22 09:14 of throat and tongue levofloxacin [From Levaquin] AdvReac Unknown ACHILLES Verified 10/29/22 09:13 TENDON TORE Medications Home Medications Medication Instructions Recorded Confirmed Last Taken Areds 2 1 tab PO BID 02/16/19 10/29/22 03/19/19 [place] [employer] 4 tab PO QAM 02/16/19 10/29/22 03/12/19 Joint Es 900 With Glucosamine 1 tab PO BID 02/16/19 10/29/22 03/12/19 Chondroitin Super Srinivas 200 mg PO QDL 02/16/19 10/29/22 03/12/19 ascorbic acid (vitamin C) 1,000 mg 1,200 mg PO QAM 02/16/19 10/29/22 03/20/19 tablet (Vitamin C) cyanocobalamin (vitamin B-12) 1,000 mcg PO QAM 02/16/19 10/29/22 03/20/19 1,000 mcg tablet (Vitamin B-12) ginkgo biloba 60 mg capsule 60 mg PO BID 02/16/19 10/29/22 03/12/19 losartan 50 mg tablet 100 mg PO QAM 02/16/19 10/29/22 03/26/19 03:00 meclizine 25 mg tablet 25 mg PO UD PRN Dizziness 02/16/19 10/29/22 Unknown montelukast 10 mg tablet 10 mg PO 1200 02/16/19 10/29/22 03/26/19 03:00 niacin 100 mg tablet 100 mg PO BID 02/16/19 10/29/22 03/12/19 omega 3 350 mg-dha 235 mg-epa 90 1 cap PO BID 02/16/19 10/29/22 03/12/19 mg-fish oil 597 mg capsule,delay rel (Triplett-3) omeprazole 20 mg capsule,delayed 40 mg PO QAM 02/16/19 10/29/22 03/26/19 03:00 release Allergy Injection 1 dose IM MO 10/29/22 10/29/22 Unknown bilberry fruit extract 160 mg 160 mg PO QAM 10/29/22 10/29/22 Unknown capsule cholecalciferol (vitamin D3) 50 50 mcg PO QPM 10/29/22 10/29/22 Unknown mcg (2,000 unit) capsule (Vitamin D3) diltiazem HCl 180 mg capsule,24 180 mg PO QAM 10/29/22 10/29/22 Unknown hr,extended release fluticasone propionate 50 1 spray intranasal QPM 10/29/22 10/29/22 Unknown mcg/actuation nasal spray,suspension Past Medical History Medical History (Updated 11/04/22 @ 11:38 by Devika Desir PA-C) Acid reflux controlled, stable per pt Aortic root enlargement Aortic root mildly enlarged at 4 cm, 08/2022 echo Claustrophobia History of postoperative nausea with TURP, denies needing scop patch History of skin cancer R shoulder, back, right check; s/p excisions; pt denies melanoma History of sleep apnea unable to tolerate CPAP; patient now s/p partial uvulectomy History of staph infection 2015 s/p left GIA (at [facility]- treated with levaquin and rifampin) Hypertension controlled, stable per pt Neck problem C2-C7 compression- manages with chiropractor; Left shoulder corticosteroid injection 02/22/19 for radiculopathy. Obesity Thyroid nodule Dr. Lyman, [facility] monitors. Vertigo Episodes a few times a year Patient denies h/o stroke, seizures, heart attack, heart failure, DM, blood clots or blood transfusions. Exercise / Class Metabolic Activity II 4-5 Yardwork/Stairs/Walk up hill (occasional shortness of breath with 1 FOS, denies chest discomfort; ongoing x 4-5 yrs without change or worsening) Past Surgical History Surgical History (Updated 11/04/22 @ 11:26 by Devika Desir PA-C) History of cardiac catheterization 2020 - +stress - [facility] - no stents History of cholecystectomy History of colonoscopy History of ear, nose, and throat (ENT) surgery REMOVED SUBLINGUAL GLAND AND RE-CONSTRUCTED SALIVARY GLAND TUBES History of endoscopy History of evacuation of hematoma S/P L GIA History of lung surgery 8 TUMORS TOTAL (B/L LUNGS), REMOVED 1 (BENIGN) History of oral surgery TOOTH EXTRACTION History of removal of skin mole MULTIPLE History of right knee surgery History of total left hip arthroplasty History of total right knee replacement (~03/2019) 03/27/19 SAB at L4-L5 1 attempt + PNB. History of transurethral resection of prostate History of uvulectomy Past Anesthesia History No Hx of Anesthesia Complications and No Family Hx of Anesthesia Complications History of PONV No Hx of Motion Sickness and History of PONV (denies needing scop patch) Social History Smoking Status: Never smoker tobacco type: cigarettes Do You Dip or Chew Tobacco: No Smoking End Date: quit in his 20s Hx Alcohol Use: Yes Alcohol type: beer alcohol intake frequency: a few times a month Hx Substance Use: No substance use type: does not use Review of Systems Patient denies chest pain, fever, chills, cough, wheezing, or palpitations. Physical Exam Vital Signs Vitals BP 126/89 P 59 TEMP 97.8 SP02 98% on RA RESP 18 Physical Full cervical extension range of motion without pain TMD 3.5 finger breadths Mallampati Score 3 Dentition: one crown; denies chipped or loose teeth, implants or bridges Lungs: normal respiratory effort. Clear throughout to auscultation, no adventitious breath sounds Cardiac: regular rate and rhythm, no murmurs noted Carotid arteries: negative bruit bilat Lab Results Anesthesia Preop Results Results Anesthesia Widget: WBC 6.45 K/ul (4.8-10.8) 11/04/22 Hgb 15.0 g/dl (14.0-18.0) 11/04/22 Hct 43.5 % (42.0-52.0) 11/04/22 Plt 245 K/uL (130-400) 11/04/22 Na 140 mmol/L (136-145) 11/04/22 K 3.9 mmol/L (3.5-5.1) 11/04/22 Cl 105 mmol/L (98-107) 11/04/22 CO2 29 mmol/L (21-32) 11/04/22 BUN 20 mg/dl (6-23) 11/04/22 Creat 1.52 mg/dl (0.6-1.4) H 11/04/22 Glucose Level 89 mg/dl (70-99(Fasting)) 11/04/22 PT 10.8 Seconds (9.0-12.0) 11/04/22 PTT 27.7 Seconds (21.0-31.0) 11/04/22 INR 1.0 (0.9-1.1) 11/04/22 Urine Color Yellow 11/04/22 Urine Appearance Clear (Clear) 11/04/22 Urine pH 5.5 (4.5-7.5) 11/04/22 Urine Specific [place]lain 1.019 (1.000-1.030) 11/04/22 Urine Protein Trace (Negative) H 11/04/22 Urine Glucose (UA) Negative (Negative) 11/04/22 Urine Ketones Negative (Negative) 11/04/22 Urine Blood Trace (Negative) H 11/04/22 Urine Nitrite Negative (Negative) 11/04/22 Urine Bilirubin Negative (Negative) 11/04/22 Urine Urobilinogen Negative (Negative) 11/04/22 Urine Leukocyte Esterase 2+ (Negative) H 11/04/22 Urine WBC (Auto) >30 /hpf (0-5) H 11/04/22 Urine RBC (Auto) 10-30 /hpf (0-4) H 11/04/22 Urine Hyaline Casts (Auto) 5-10 /lpf (0-5) H 11/04/22 Urine Epithelial Cells (Auto) 20-30 /lpf (0-5) H 11/04/22 Urine Bacteria (Auto) 1+ (Negative) H 11/04/22 Blood Type O Positive 11/04/22 Antibody Screen NEGATIVE 11/04/22 Testing Electrocardiogram Date: 11/04/22 Sinus bradycardia, rate 58 bpm Chest X-Ray Date: 11/04/22 The cardiomediastinal and hilar silhouettes are unchanged. No pneumothorax, pleural effusion, airspace consolidation or overt pulmonary edema. Bones appear grossly intact. Surgical suture material the right midlung. Possible embolization coils of the upper abdomen. IMPRESSION: No acute process. Echocardiogram Date: 08/19/22 EF 55-60% Mild cLVH Mild mitral regurgitation Aortic root mildly enlarged at 4 cm Stress Test Date: 10/11/20 Pharmacologic Lateral wall ischemia EF 66% See subsequent cath report below Cardiac Catheterization Date: 10/24/20 Left main: angiographically normal LAD: angiographically normal Cx: angiographically normal RCA: less than 10% mild luminal irregularities COVID-19 Risk Screen Screening Information COVID-19 Screen Date: 11/04/22 Exposure 21 Days Family/Household +COVID Last 21 Days: No Exposure 10 Days Any COVID Exposure Last 10 Days: No Symptoms Last 10 Days Experienced COVID Sx Last 10 Days: No + COVID 0-90 Days COVID + in Last 0-90 Days: No
--- NOTE | 2022-11-25 06:38 | History & Physical Report ---
Date of Service November 25, 2022 Assessment & Plan (1) Osteoarthritis of left knee: We will proceed with a left total knee arthroplasty. Postoperatively he will be started on aspirin for DVT prophylaxis and kept overnight in the hospital for postoperative medical management. He plans to have the hospital set up upon discharge. History of Present Illness Chief Complaint: Osteoarthritis of the left knee. Primary Care Provider: Khoi ChengDO Patel is a pleasant 72-year-old male who has been dealing with chronic worsening left knee pain. He is ambulating with a cane because of his left knee. He has a very antalgic gait. I did a right knee replacement on him in 2019 and did very well with that. He recently had a left hip replacement done by Dr. Fredy berger and unfortunately had a postoperative staph infection. That has been cleared and he is currently off the antibiotics. His knee pain is debilitating. I have been given him injections to his knee, but they are not helping. He gets less than a week of relief. X-rays showed advanced arthritis. After failing conservative treatment, he has elected proceed with a left total knee arthroplasty. Allergies Allergy/AdvReac Type Severity Reaction Status Date / Time Sulfa (Sulfonamide Allergy Unknown UNKNOWN, Verified 10/29/22 09:13 Antibiotics) REACTION WAS WHEN A CHILD cephalexin [From Keflex] Allergy "burning" Verified 10/29/22 09:14 of throat and tongue levofloxacin [From Levaquin] AdvReac Unknown ACHILLES Verified 10/29/22 09:13 TENDON TORE Home Medications Medication Instructions Recorded Confirmed Type Areds 2 1 tab PO BID 02/16/19 10/29/22 History Albers Minerals 4 tab PO QAM 02/16/19 10/29/22 History Joint Es 900 With Glucosamine 1 tab PO BID 02/16/19 10/29/22 History Chondroitin Super Srinivas 200 mg PO QDL 02/16/19 10/29/22 History ascorbic acid (vitamin C) 1,000 mg 1,200 mg PO QAM 02/16/19 10/29/22 History tablet (Vitamin C) cyanocobalamin (vitamin B-12) 1,000 mcg PO QAM 02/16/19 10/29/22 History 1,000 mcg tablet (Vitamin B-12) ginkgo biloba 60 mg capsule 60 mg PO BID 02/16/19 10/29/22 History losartan 50 mg tablet 100 mg PO QAM 02/16/19 10/29/22 History meclizine 25 mg tablet 25 mg PO UD PRN Dizziness 02/16/19 10/29/22 History montelukast 10 mg tablet 10 mg PO 1200 02/16/19 10/29/22 History niacin 100 mg tablet 100 mg PO BID 02/16/19 10/29/22 History omega 3 350 mg-dha 235 mg-epa 90 1 cap PO BID 02/16/19 10/29/22 History mg-fish oil 597 mg capsule,delay rel ([place]-3) omeprazole 20 mg capsule,delayed 40 mg PO QAM 02/16/19 10/29/22 History release Allergy Injection 1 dose IM MO 10/29/22 10/29/22 History bilberry fruit extract 160 mg 160 mg PO QAM 10/29/22 10/29/22 History capsule cholecalciferol (vitamin D3) 50 50 mcg PO QPM 10/29/22 10/29/22 History mcg (2,000 unit) capsule (Vitamin D3) diltiazem HCl 180 mg capsule,24 180 mg PO QAM 10/29/22 10/29/22 History hr,extended release fluticasone propionate 50 1 spray intranasal QPM 10/29/22 10/29/22 History mcg/actuation nasal spray,suspension Past Med/Surg History Medical History Acid reflux controlled, stable per pt Aortic root enlargement Aortic root mildly enlarged at 4 cm, 08/2022 echo Claustrophobia History of postoperative nausea with TURP, denies needing scop patch History of skin cancer R shoulder, back, right check; s/p excisions; pt denies melanoma History of sleep apnea unable to tolerate CPAP; patient now s/p partial uvulectomy History of staph infection 2015 s/p left GIA (at [facility]- treated with levaquin and rifampin) Hypertension controlled, stable per pt Neck problem C2-C7 compression- manages with chiropractor; Left shoulder corticosteroid injection 02/22/19 for radiculopathy. Obesity Thyroid nodule Dr. Lyman, [facility] [place] monitors. Vertigo Episodes a few times a year Surgical History History of cardiac catheterization 2020 - +stress - [facility] - no stents History of cholecystectomy History of colonoscopy History of ear, nose, and throat (ENT) surgery REMOVED SUBLINGUAL GLAND AND RE-CONSTRUCTED SALIVARY GLAND TUBES History of endoscopy History of evacuation of hematoma S/P L GIA History of lung surgery 8 TUMORS TOTAL (B/L LUNGS), REMOVED 1 (BENIGN) History of oral surgery TOOTH EXTRACTION History of removal of skin mole MULTIPLE History of right knee surgery History of total left hip arthroplasty History of total right knee replacement (~03/2019) 03/27/19 SAB at L4-L5 1 attempt + PNB. History of transurethral resection of prostate History of uvulectomy Social History Smoking Status: Never smoker Smoking End Date: quit in his 20s; Second Hand Exposure: No; Do You Dip or Chew Tobacco: No; Tobacco Cessation Education Requested by Patient: No Hx Alcohol Use: Yes Alcohol type: beer Hx Substance Use: No Preferred Language: [place] Leonean Communication Ability: Effective News Anchor Required: No Beliefs That Will Affect Care: None marital status: Current Living Situation: Spouse Feels Safe at Home: Yes Safety Concerns: Feels Safe At This Time Assistive Devices: Cane and Glasses Review of Systems All systems reviewed & are unremarkable except as noted in HPI & below. Physical Exam Physical examination he has good range of motion of 0-120 degrees. He has no instability. He has pain over the distal medial femoral condyle and over the medial joint line.. Constitutional WD/WN, vitals as above Eyes PERRL, conjunctivae normal, anicteric sclerae ENMT external ear and nose normal, oropharynx normal Neck trachea midline, no thyromegaly Respiratory normal respiratory effort, lungs clear to auscultation Cardiovascular RRR, no murmur, no edema Gastrointestinal (Abdomen) normal bowel sounds, soft, nontender, no hepatosplenomegaly Skin no rashes, warm and dry Psychiatric A+Ox3, euthymic affect Results & Data Results & Data Laboratory Results . Diagnostic Findings X-rays of the left knee show advanced osteoarthritis with joint space narrowing, osteophyte formation, and [id number] articulation.. PG Care Time/CCT Total # of Minutes Spent Total Time Spent with Patient: Total time spent is greater than 50% in coordination of care (as documented) at patient's floor/unit and/or counseling patient: Coding Level of Care Code None Diagnoses Osteoarthritis of left knee M17.12
[~2022-11-25 09:23] MED LIST: ACETAMINOPHEN 500 MG TAB PO SCH; FAMOTIDINE 20 MG TAB PO SCH; GABAPENTIN 300 MG CAP PO SCH; Ketorolac (*for OR use only*) 30 MG, dexAMETHasone 4 MG, KETAMINE HCL (**OR use only) 1... INFIL SCH; LACTATED RINGER'S 1,000 ML IV SCH; LR 500ML BOLUS, THEN 15ML/HR IV SCH; LR 60ML/HR IV SCH; ROPIVACAINE 0.5% 5 MG/ML 30 ML VIAL ONE; TRANEXAMIC ACID 1,000 MG **IV Intra-op IV SCH; TRANEXAMIC ACID 1,000 MG **IV Pre-op IV SCH; dexAMETHasone 4 MG TAB PO SCH
[2022-11-25] MEDS ORDERED: ORTHO JOINT ANESTHETIC ONE (11:43)
[2022-11-25] MEDS ORDERED: PROPOFOL IV EMULSION 10 MG/ML 20 ML VIAL IV ONE ×4 (11:45→13:06)
[2022-11-25] MEDS ORDERED: MIDAZOLAM HCL 1 MG/ML 2ML VIAL ONE (11:45)
[2022-11-25] MEDS ORDERED: ePHEDrine sulfate 50 MG/ML AMP IV PRN (12:01)
[2022-11-25] MEDS ORDERED: ONDANSETRON INJ 2 MG/ML 2 ML VIAL IV PRN (12:01)
[2022-11-25] MEDS ORDERED: ATROPINE SULFATE 0.1 MG/ML 10ML SYR IV PRN (12:01)
[2022-11-25] MEDS ORDERED: HYDROmorphone INJ 1 MG/ML SYRINGE IV PRN (12:01)
[2022-11-25] MEDS ORDERED: fentaNYL citrate PF 100 MCG/2 ML VIAL IV PRN (12:01)
[2022-11-25] MEDS ORDERED: KETAMINE 50 MG/5 ML SYRINGE ONE (12:08)
[2022-11-25] MEDS ORDERED: ONDANSETRON INJ 2 MG/ML 2 ML VIAL ONE (13:06)
[2022-11-25] MEDS ORDERED: LIDOCAINE 2% MPF LOCAL 5 ML VIAL ONE (13:06)
--- NOTE | 2022-11-25 13:15 | Operative Report ---
PG Post Operative Report Pre & Post Diagnosis Operation Date: 11/25/22 12:30 Pre-Op Diagnosis: Degenerative Joint Disease Left Knee Post-Op Diagnosis: Degenerative Joint Disease Left Knee I identified the patient and participated in the time-out.: Yes Procedure Operation Date: 11/25/22 12:30 Actual Procedures p Left Total Knee Arthroplasty(Left) - Heraclio Foster DO Surgeon Heraclio Foster DO [employer] Heraclio Wong PA-C Estimated Blood Loss 30 Findings Consistent with Post-Op Diagnosis Specimens Left femoral tibial bone Description of Procedure Implants used: I used a Raysa Persona total knee arthroplasty system with a size 10 standard femur, F tibia, 34 oval patella, and a size 12 medial congruent polyethylene bearing. All components were cemented in place with Biomet cement. Jorge arrived [facility] for the above procedure. He was seen in the preoperative holding area and the operative extremity was identified and signed. He was given a preoperative antibiotic, TXA, a spinal anesthetic and an adductor nerve block. He was taken back to the operating room and laid on the table in supine position. He was given basic sedation. The operative knee was then prepped and draped in sterile fashion. A timeout was done, and the patient and the operative extremity was properly identified. A midline incision was made directly over the patella. Dissection was taken down to the extensor mechanism. A midvastus arthrotomy was used. The medial retinaculum was released and the fat pad was mostly excised. The knee was flexed and the ACL, PCL, and meniscus were removed. A drill was sent down the center of the femoral canal followed by an intramedullary olivia. Off that olivia a distal femoral cutting block was placed. 9 mm was resected off the distal femur at 5 of valgus. A posterior referencing AP sizing guide was then placed on the distal femur. The femur measured to be a size 10. 2 drill holes were placed in 3 of external rotation. A 4-in-1 cutting block was then impacted into place. Anterior, posterior, and chamfer cuts were then made. The proximal tibia was then exposed. An external tibial alignment guide was placed. A tibial cut guide was then anchored in place and the proximal tibia was then resected. The posterior aspect of the knee was then opened up and any additional meniscus fragments and osteophytes were removed. The tibia measured to be a size F. The tibial plate was then placed in the appropriate rotation and the tibia was drilled and punched. Trial components were then placed. I used a size 12 medial congruent polyethylene insert. The knee was brought through a full range of motion and felt to be stable. The peg holes for the femoral component were then drilled. The patella was then everted and 9 mm was resected off the posterior aspect of the patella. The patella measured to be a size 34 oval. 3 peg holes were then drilled. A trial patella was placed. The knee was once again brought through a full range of motion and felt to be stable. Trial components were then removed. The surrounding soft tissues were injected with 100 cc of an orthopedic pain control cocktail. All components were then cemented into place with Biomet cement. The final polyethylene insert was then snapped into place. Once cement was dry the tourniquet was deflated. Hemostasis was obtained. A dilute betadyne lavage was then done for 3 minutes. The joint was then irrigated with normal saline solution. The midvastus arthrotomy was then closed with #1 Vicryl suture. The skin was closed with 2-0 Vicryl, 3-0V lock suture, and omer. A soft compressive dressing was placed. He was then transferred to a hospital bed and taken to the postanesthesia care unit in stable condition. He tolerated the procedure well. Heraclio Wong PA-C, was present for the entire procedure. He was critical for patient positioning, prepping, draping, retraction exposure, wound closure and application of sterile dressing. I attest to the content of the Intraoperative Record and any orders documented therein. Any exceptions are noted below.
--- NOTE | 2022-11-25 14:09 | Anesthesiology Progress Note ---
Date of Service November 25, 2022 Anesthesia Post Procedure Vital Signs Vital Signs: Temp Pulse Pulse Resp BP Pulse Ox O2 Del Method 11/25/22 14:05 97.7 F 57 L 20 136/81 99 Room Air 11/25/22 13:55 58 L 14 139/66 99 Room Air 11/25/22 13:45 64 16 125/87 96 Room Air 11/25/22 13:35 97.9 F 75 16 108/63 98 Oxymask 11/25/22 10:38 Room Air 11/25/22 10:38 97.7 F 76 20 157/81 H 99 Room Air O2 Flow Rate 11/25/22 14:05 11/25/22 13:55 11/25/22 13:45 11/25/22 13:35 6 11/25/22 10:38 11/25/22 10:38 Pain Intensity Left Knee: Pain Intensity: 1 Transfer of Care Handoff Completed per policy Notes Mental Status: alert / awake / arousable and participated in evaluation Patient Amnestic to Procedure: Yes Nausea / Vomiting: adequately controlled Pain: adequately controlled Airway Patency, RR, SpO2: stable & adequate BP & HR: stable & adequate Hydration State: stable & adequate Neuraxial Anesthesia: was administered and sensory block is resolving Anesthetic Complications: no major complications apparent and Pt Satisfied with anesthetic care
--- NOTE | 2022-11-25 14:17 | XRay Report ---
XR knee LT 1 or 2V routine CLINICAL HISTORY: Surgical Post Op TECHNIQUE: 2 views of the left knee were obtained. Comparison: None available at the time of this dictation. FINDINGS: Patient is status post total knee arthroplasty with expected postsurgical changes including soft tiss ue swelling and subcutaneous emphysema. No periarticular lucency or hardware fracture is seen. IMPRESSION: Expected postoperative appearance status post placement of total knee arthroplasty. ACT 112: Negative or not required by law. Electronically signed by: Vel Preston M.D. 11/25/2022 2:16 PM
[2022-11-25] MEDS ORDERED: SODIUM CHLORIDE 0.9% 1000ML 1,000 ML IV SCH (15:16)
[2022-11-25] MEDS ORDERED: bisacodyL 10 MG SUPP PR PRN (15:16)
[2022-11-25] MEDS ORDERED: MECLIZINE HCL 25 MG TAB PO PRN (15:16)
[2022-11-25] MEDS ORDERED: NALOXONE HCL 0.4 MG/1 ML VIAL/CARP IV PRN (15:16)
[2022-11-25] MEDS ORDERED: METOCLOPRAMIDE HCL INJ 5 MG/ML 2 ML VIAL IV PRN (15:16)
[2022-11-25] MEDS ORDERED: HYDROmorphone INJ 0.5 MG/0.5 ML SYR IV PRN (15:16)
[2022-11-25] MEDS ORDERED: MAGNESIUM HYDROXIDE SUSP 30 ML UDC PO PRN (15:16)
[2022-11-25] MEDS ORDERED: oxyCODONE HCL IR 5 MG TAB (IMMEDIATE RELEASE) PO PRN (15:16)
[2022-11-25] MEDS: KETOROLAC TROMETHAMINE 15 MG/ML VIAL IV SCH ×2 (17:11→23:46)
[2022-11-25] MEDS: ASPIRIN 81 MG ECTAB PO SCH (20:03)
[2022-11-25] MEDS: ceFAZolin 2000MG 2,000 MG/15 ML SYR IV SCH (20:03)
[2022-11-25] MEDS: DOCUSATE SODIUM 100 MG CAP PO SCH (20:04)
[2022-11-25] MEDS ORDERED: NIACIN 100 MG PO SCH (21:00)
[2022-11-25] MEDS ORDERED: FLUTICASONE PROPIONATE NA SPR 16 GM BTL SCH (21:00)
[2022-11-25] MEDS ORDERED: SENNA 8.6 MG TAB PO SCH (21:00)
[2022-11-26] MEDS: ceFAZolin 2000MG 2,000 MG/15 ML SYR IV SCH (04:07)
[2022-11-26] MEDS: KETOROLAC TROMETHAMINE 15 MG/ML VIAL IV SCH ×2 (05:49→12:10)
--- NOTE | 2022-11-26 06:39 | Orthopedic Progress Note ---
Date of Service November 26, 2022 Assessment & Plan (1) Status post left knee replacement: Overall is doing very well. Is not having much pain in the left knee. Will be seen by physical therapy today for ambulation and range of motion exercises. He was having some pain in his low back last night but that has since mostly subsided and he is treating it with a warm cloth. He is on aspirin for DVT prophylaxis. He can be discharged home later today. He will follow with orthopedics in 2 weeks. Ernie Patel was seen and examined at bedside this morning. Overall is doing well. Is not having much pain in the left knee. Has been up and ambulating around the room. Has no complaints.. Review of Systems All systems reviewed & are unremarkable except as noted in HPI & below. Physical Exam On physical examination of left knee, the dressing is clean and dry. His leg is out full extension. He has active dorsiflexion plantarflexion of the left ankle .. Results & Data Results & Data Laboratory Results . Diagnostic Findings Postoperative x-rays of the left knee show the prosthesis to be in anatomic alignment without any evidence of fracture, screws, or loosening.. PG Care Time/CCT Total # of Minutes Spent Total Time Spent with Patient: Total time spent is greater than 50% in coordination of care (as documented) at patient's floor/unit and/or counseling patient: Coding Level of Care Code 40263 Post Operative Follow-Up Diagnoses Status post left knee replacement Z96.652
--- NOTE | 2022-11-26 06:40 | Discharge Summary ---
Date of Service November 26, 2022 Admission HPI (Per Admitting) Jorge is a pleasant 72-year-old male who has been dealing with chronic worsening left knee pain. He is ambulating with a cane because of his left knee. He has a very antalgic gait. I did a right knee replacement on him in 2019 and did very well with that. He recently had a left hip replacement done by Dr. Spivey and unfortunately had a postoperative staph infection. That has been cleared and he is currently off the antibiotics. His knee pain is debilitating. I have been given him injections to his knee, but they are not helping. He gets less than a week of relief. X-rays showed advanced arthritis. After failing conservative treatment, he has elected proceed with a left total knee arthroplasty. Admission Exam (Per Admitting) Physical examination he has good range of motion of 0-120 degrees. He has no instability. He has pain over the distal medial femoral condyle and over the medial joint line.. Principal Diagnosis Same as "Discharge Diagnosis" noted below under Discharge Instructions. Discharge Exam On physical examination of left knee, the dressing is clean and dry. His leg is out full extension. He has active dorsiflexion plantarflexion of the left ankle.. Discharge Data Procedures Performed Operation Date: 11/25/22 12:30 Actual Procedures p Left Total Knee Arthroplasty(Left) - Heraclio Foster DO Ordered Studies 11/25/22 05:00 US - OR guided needle placemen Routine Hospital Course (1) Status post left knee replacement: On November 25, 2022 Jorge arrived at [facility] and underwent a left knee replaced without complication. He had a spinal anesthetic. Postoperatively he was started on aspirin for DVT prophylaxis and transferred to the general orthopedic floors. His hospital course was uneventful. On postop day 1, his vital signs were stable and his pain was well controlled. He was able to participate well with physical therapy doing ambulation and range of motion exercises. He was then discharged home. He will follow-up orthopedics in 2 weeks. PG Care Time/CCT Total # of Minutes Spent Total Time Spent with Patient: Total time spent is greater than 50% in coordination of care (as documented) at patient's floor/unit and/or counseling patient: Discharge Plan Discharge Items Patient Disposition: Home - Home Health Services Reason For Visit: DJD Left Knee Discharge Diagnosis: Left knee replacement Activity: Per Instructions section Non-emergency contact: Surgeon Call non-emergency contact if: your wound has increased redness and your wound has increased drainage Follow-up/Referrals: Khoi Cheng DO [Primary Care Provider] - Diet: Regular Addtl Attending Provider Instructions: Activity and Therapy Recommendations: * If you are using [facility] then therapy will be provided at your home until they feel you have accomplished all of your goals. * If you are using [facility] then Physical Therapy will be provided until they feel you are ready to start Outpatient Physical Therapy. * If you are not using home therapy then Outpatient Physical Therapy should start about 3-5 days from your day of surgery. Therapy will last about 6-10 weeks * It is important not to put a pillow under your knee when you are relaxing or sleeping. It is just as important to make sure you are getting your knee perfectly straight as it is to regain your knee bend. * You were shown a series of exercises in the hospital. Do these exercises three times each day including the exercises you were shown in physical therapy. * Get up and walk several times each day. For the first four weeks, try not to stand or walk for more than one hour at a time. If you do stand or walk for more than one hour, you will not hurt anything, but your leg will likely swell. * As you feel comfortable, you may change from the walker or crutches to a cane and then to independent walking. Medications: * Narcotic You will likely be sent home from the hospital with a prescription for the narcotic pain medication that worked best throughout your stay. * Aspirin Most patients will be required to take Aspirin 81mg twice a day for 6 weeks after surgery. This is obtained [id number] and a prescription is not necessary. * Other medications may be prescribed for specific circumstances. If you have any questions, please call the office at . * Resume previous home medications unless otherwise instructed TEDs/Elastic Stockings: The white elastic stockings help limit swelling and prevent blood clots from forming in your legs.~ The more you wear them, the more they work. Wear them for six weeks. Dressing Care: The dressing can be changed after physical therapy on postop day #1. Daily dry dressing changes for a few days, especially if the incision is still draining some. If the incision is not draining then you may leave the omer open to air. If there is a little bit of drainage or if the omer are getting stuck on your clothing then cover the incision with a dry dressing. The omer will be removed at your 2 week follow-up appointment. Showering: You may shower 5 days from the day of surgery as long as the incision is no longer draining. You may shower with the omer exposed. Let soapy water run over the omer and pat them dry. Do not scrub or soak the incision. Things To Watch For: * Drainage from the incision site that occurs more than one week after your surgery. * Increased redness at the incision site. * Fever above 102 degrees Fahrenheit. * Unusual chest pain or shortness of breath. * Call [facility] at with any of the above problems Follow-Up Visit: Follow-up with Dr. Foster's PA (Heraclio Wong) 2-3 weeks after your day of surgery. He will remove your omer and answer any questions. If you have any additional questions or concerns, Dr Foster is usually in the office at the same time and will be available An appointment was probably scheduled when you signed-up for surgery in the office. If you have any questions call Office Instructions: More detailed instructions as well as Frequently Asked Questions were provided in a folder by our office when you signed-up for surgery. Please review these instructions when you get home. If you have any further questions or concerns, please feel free to call the office at [phone] Pending Studies at Discharge: No Stand-Alone Forms: My [facility] Medications and DC Order Prescriptions: New aspirin 81 mg Tablet,Delayed Release (Dr/Ec) 81 mg PO BID 42 Days Qty: 84 0RF hydrocodone-acetaminophen 5-325 mg tablet 1 tab PO Q6H PRN (Reason: pain) Qty: 30 0RF Continued losartan 50 mg Tablet 100 mg PO QAM Patient Comments: TAKE AT NOON omeprazole 20 mg Capsule,Delayed Release(Dr/Ec) 40 mg PO QAM montelukast 10 mg Tablet 10 mg PO 1200 ascorbic acid (vitamin C) [Vitamin C] 1,000 mg Tablet 1,200 mg PO QAM cyanocobalamin (vitamin B-12) [Vitamin B-12] 1,000 mcg Tablet 1,000 mcg PO QAM meclizine 25 mg Tablet 25 mg PO UD PRN (Reason: Dizziness) Patient Comments: " i havent taken that for six months" niacin 100 mg Tablet 100 mg PO BID ginkgo biloba 60 mg Capsule 60 mg PO BID [place]-3 350 mg-235 mg- 90 mg-597 mg Capsule,Delayed Release(Dr/Ec) 1 cap PO BID Patient Comments: 800 MG Areds 2 1 tab PO BID [place] Minerals 4 tab PO QAM Joint Es 900 With Glucosamine Chondroitin 1 tab PO BID Patient Comments: 600 MG GLUCOSAMINE, 48 MG CHONDROITIN Super Srinivas 200 mg PO QDL Allergy Injection 1 dose IM MO diltiazem HCl 180 mg Capsule,Extended Release 24 Hr 180 mg PO QAM fluticasone propionate [Flonase] 50 mcg/actuation [place],Suspension 1 spray INTRANASAL QPM Rx Instructions: administer into each nostril Bilberry Extract 160 mg Capsule 160 mg PO QAM cholecalciferol (vitamin D3) [Vitamin D3] 50 mcg (2,000 unit) Capsule 50 mcg PO QPM Admission Data Admit Date/Time: 11/25/22 13:19 Attending Provider: Heraclio Foster Admit Provider: Heraclio Foster Primary Care Provider: Khoi Cheng
[2022-11-26] MEDS: DOCUSATE SODIUM 100 MG CAP PO SCH (07:50)
[2022-11-26] MEDS ORDERED: dexAMETHasone 4 MG TAB PO SCH (08:00)
[2022-11-26] MEDS ORDERED: HYDROCODONE/ACETAMOPHEN 5/325MG TAB PO PRN (08:25)
[2022-11-26] MEDS ORDERED: PANTOprazole 40 MG TAB PO SCH (09:00)
[2022-11-26] MEDS ORDERED: LOSARTAN POTASSIUM 50 MG TAB PO SCH (09:00)
[2022-11-26] MEDS ORDERED: dilTIAZem HCL 180 MG CAPCR PO SCH (09:00)
[2022-11-26] MEDS ORDERED: MULTIVITAMIN TAB PO SCH (09:00)
[2022-11-26] MEDS: ASPIRIN 81 MG ECTAB PO SCH (09:08)
[2022-11-26] MEDS ORDERED: MONTELUKAST SODIUM 10 MG TABLET PO SCH (12:00)
== END 2022-11-26 12:10 | disposition home health service (06) ==
LOC: 3E 09:23 → ASU 09:23